=== PATIENT | male | born 1980 | race Asian ===

== ENCOUNTER 2019-08-24 14:55 | Outpatient (CLI) | payer BC | END 2019-08-24 21:51 | disposition home or self-care (01) | LOC: LABW 14:55 | DX: R19.7 Diarrhea, unspecified (principal) | CPT/HCPCS: 83630; 87015; 87045; 87324; 87328; 87329; 87449; 87899 ==

== ENCOUNTER 2022-12-07 11:50 | Outpatient (CLI) | payer OTHER ==
[2022-12-07 13:28] LABS: PLATELET COUNT 14 K/uL (142-355)
== END 2022-12-07 19:25 | disposition home or self-care (01) ==
LOC: LAB 11:50
PROVIDERS: ATTEND Nurse Practitioner Family
DX: D69.6 Thrombocytopenia, unspecified (principal)
CPT/HCPCS: 85007; 85027

== ENCOUNTER 2022-12-09 12:14 | Outpatient (CLI) | payer OTHER ==
[2022-12-09 12:44] LABS: POTASSIUM 3.2 mmol/L (3.6-5.2)
[2022-12-09 12:57] LABS: PLATELET COUNT 18 K/uL (142-355)
== END 2022-12-09 19:39 | disposition home or self-care (01) ==
LOC: LABW 12:14
PROVIDERS: ATTEND Family Medicine
DX: C95.90 Leukemia, unspecified not having achieved remission (principal); Z79.69 Long term (current) use of other immunomodulators and immunosuppressants
CPT/HCPCS: 36415; 80053; 83735; 84100; 85008; 85027